=== PATIENT | male | born 1960 | race Caucasian/White ===

== ENCOUNTER 2021-11-29 06:25 | Observation (INO) | payer BC ==
[2021-11-29] VITALS (7 sets, daily range): BP systolic 138–160; BP diastolic 91–100
[~2021-11-29] VITALS: Ht 188 cm; Wt 127.0 kg
[~2021-11-29 06:25] MED LIST: MELOX; MELOXICAM PO
[2021-11-29] MEDS ORDERED: ASPIRIN 81 MG CHEW TAB PO ONE ×2 (08:45→12:15)
[2021-11-29] MEDS: SODIUM CHLORIDE 0.9% 1000ML 1,000 ML IV SCH ×2 (09:11→19:34)
[2021-11-29 09:13] LABS: BASOPHILS # (AUTO) 0.1 (0.0-0.1); BASOPHILS % 0.7 % (0.0-1.0); EOSINOPHILS # (AUTO) 0.4 (0.0-0.4); EOSINOPHILS % 4.9 % (0.0-6.0); HEMATOCRIT 49.8 % (38.2-49.6); HEMOGLOBIN 16.4 g/dL (14.0-18.0); LYMPHOCYTES # (AUTO) 2.2 (1.0-3.2); LYMPHOCYTES % 28.3 % (18.0-39.1); MEAN CORPUSCULAR HEMOGLOBIN 28.7 pg (28-32); MEAN CORPUSCULAR HGB CONC 32.9 g/dL (31-35); MEAN CORPUSCULAR VOLUME 87.1 fL (81-99); MONOCYTES # (AUTO) 0.6 (0.2-0.8); MONOCYTES % 7.8 % (4.4-11.3); NEUTROPHILS # (AUTO) 4.4 (2.1-6.9); PLATELET COUNT 234 x10e3/uL (140-360); RED BLOOD COUNT 5.72 x10e6/uL (4.3-5.7); RED CELL DISTRIBUTION WIDTH 13.9 % (11.7-14.4)
[2021-11-29] MEDS ORDERED: DIAZEPAM INJ 5 MG/ML 2 ML IV ONE (09:30)
[2021-11-29 09:48] LABS: ALBUMIN 3.9 g/dL (3.5-5.0); ALBUMIN/GLOBULIN RATIO 1.5 (0.8-2.0); ANION GAP 15.5 mmol/L (8-16); CALCIUM 9.3 mg/dL (8.4-10.2); POTASSIUM 4.5 mmol/L (3.5-5.1)
[2021-11-29 10:01] LABS: CREATINE KINASE MB 2.7 ng/mL (0-5.0)
[2021-11-29 10:21] LABS: CREATININE, SERUM 0.81 mg/dL (0.72-1.25)
[2021-11-29] MEDS ORDERED: CLOPIDOGREL BISULFATE 75 MG TAB PO ONE (12:30)
[2021-11-29] MEDS ORDERED: LIPITOR20 MG PO ×2 (13:30→15:53)
[2021-11-29] MEDS: LOSARTAN POTASSIUM 25 MG TAB PO SCH (13:39)
[2021-11-29] MEDS ORDERED: PLAVIX75 MG PO (15:53)
[2021-11-29] MEDS ORDERED: ASPIRIN CHEW81 MG PO (15:53)
[2021-11-29 17:02] LABS: CREATINE KINASE 134 IU/L (30-200)
[2021-11-29] MEDS ORDERED: ATORVASTATIN 40 MG TAB PO SCH (21:00)
[2021-11-29] MEDS ORDERED: HYDRALAZINE HCL 20 MG/ML VIAL IV PRN (22:00)
[2021-11-29] MEDS ORDERED: SODIUM CHLORIDE 0.9% 100 ML ONE (22:11)
[2021-11-29] MEDS ORDERED: IOPAMIDOL 370 MG/ML 200 ML INFUS..BTL INJ ONE (22:11)
[2021-11-30 00:50] VITALS: BP 146/86
[2021-11-30 01:13] LABS: CREATINE KINASE MB 2.5 ng/mL (0-5.0)
[2021-11-30] MEDS: SODIUM CHLORIDE 0.9% 1000ML 1,000 ML IV SCH ×2 (02:50→10:41)
[2021-11-30 05:50] VITALS: BP 154/83
[2021-11-30 06:08] LABS: BASOPHILS # (AUTO) 0.1 (0.0-0.1); BASOPHILS % 0.6 % (0.0-1.0); EOSINOPHILS # (AUTO) 0.4 (0.0-0.4); EOSINOPHILS % 3.7 % (0.0-6.0); HEMATOCRIT 48.1 % (38.2-49.6); HEMOGLOBIN 16.4 g/dL (14.0-18.0); LYMPHOCYTES % 20.2 % (18.0-39.1); MEAN CORPUSCULAR HEMOGLOBIN 28.2 pg (28-32); MEAN CORPUSCULAR HGB CONC 34.1 g/dL (31-35); MEAN CORPUSCULAR VOLUME 82.6 fL (81-99); MONOCYTES # (AUTO) 0.6 (0.2-0.8); MONOCYTES % 5.7 % (4.4-11.3); NEUTROPHILS # (AUTO) 6.8 (2.1-6.9); NEUTROPHILS % 69.4 % (38.7-80.0); PLATELET COUNT 254 x10e3/uL (140-360); RED BLOOD COUNT 5.82 x10e6/uL (4.3-5.7); RED CELL DISTRIBUTION WIDTH 13.6 % (11.7-14.4)
[2021-11-30 06:56] LABS: ALBUMIN 3.8 g/dL (3.5-5.0); ALBUMIN/GLOBULIN RATIO 1.2 (0.8-2.0); CALCIUM 8.8 mg/dL (8.4-10.2); CREATININE, SERUM 0.75 mg/dL (0.72-1.25)
[2021-11-30 08:36] VITALS: BP 139/83
[2021-11-30] MEDS ORDERED: GADOBENATE DIMEGLUMINE 1 ML IV ONE (08:40)
[2021-11-30] MEDS ORDERED: SODIUM CHLORIDE 0.9% 50ML 50 ML ONE (08:40)
[2021-11-30 08:51] VITALS: BP 139/83
[2021-11-30] MEDS: LOSARTAN POTASSIUM 25 MG TAB PO SCH (08:53)
[2021-11-30] MEDS ORDERED: CLOPIDOGREL BISULFATE 75 MG TAB PO SCH (09:00)
[2021-11-30] MEDS ORDERED: ASPIRIN 81 MG CHEW TAB PO SCH (09:00)
[2021-11-30 12:09] VITALS: BP 148/88
[2021-11-30] MEDS ORDERED: LORAZEPAM INJ 2 MG/ML VIAL IV ONE (13:00)
[2021-11-30 17:19] VITALS: BP 121/58
[2021-11-30] MEDS ORDERED: COZAAR25 MG PO (17:34)
== END 2021-11-30 18:28 | disposition home or self-care (01) ==
LOC: ER 06:31 → ERHOLD 08:56 → MED/SURG3 10:14
PROVIDERS: ADMIT Internal Medicine; ATTEND Internal Medicine
DX: R47.1 Dysarthria and anarthria (principal); R47.01 Aphasia; I65.23 Occlusion and stenosis of bilateral carotid arteries; E78.5 Hyperlipidemia, unspecified; Z96.653 Presence of artificial knee joint, bilateral; I10 Essential (primary) hypertension; E66.9 Obesity, unspecified; Z68.35 Body mass index [BMI] 35.0-35.9, adult; Z86.73 Personal history of transient ischemic attack (TIA), and cerebral infarction without residual deficits; Z20.822 Contact with and (suspected) exposure to COVID-19
CPT/HCPCS: 36415 ×2; 70450; 70496; 70498; 70544; 70547; 70551; 72050; 73130; 80053 ×2; 82550 ×2; 82553 ×2; 84484 ×2; 85025 ×2; 92523; 93005; 93306; 93880; 99284; A9577; G0378 ×2; J2060; J3360; J7030 ×2; J7050; Q9967; U0002